=== PATIENT | female | born 1950 | race Caucasian/White ===

== ENCOUNTER → 2022-08-09 | Outpatient (CLI) | payer MEDICARE ==
--- NOTE | 2022-08-10 05:19 | MR ---
EXAMINATION TYPE: MR shoulder RT wo con DATE OF EXAM: 08/09/2022 COMPARISON: None HISTORY: Rt shoulder pain Multiplanar multiecho imaging of the right shoulder performed with no contrast. There is a large shoulder joint effusion. There is narrowing of the glenohumeral joint space. There i s a mild subdeltoid effusion. AC joint is intact. No significant subacromial impingement. There are s mall areas of increased signal in the supraspinatus tendon without a definite full-thickness tear. Th ere is no retraction. There is increased signal in the infraspinatus tendon consistent with full-thic kness tear. There is a 1 cm degenerative cyst in the greater tuberosity of the humerus. No fracture l ine seen. The glenoid ida appear intact. The subscapularis tendon is intact. The biceps tendon is i ntact. IMPRESSION: There is some thickening and increased signal in the supraspinatus tendon consistent with tendinitis. Large shoulder joint effusion that is nonspecific. There is evidence of full-thickness tear and tendinitis involving the infraspinatus tendon.
== END | disposition home or self-care (01) ==
LOC: RADMRIMAIN 06:57
PROVIDERS: ATTEND Physician Assistant
DX: S43.004A Unspecified dislocation of right shoulder joint, initial encounter (principal); M75.111 Incomplete rotator cuff tear or rupture of right shoulder, not specified as traumatic; M75.101 Unspecified rotator cuff tear or rupture of right shoulder, not specified as traumatic; M12.811 Other specific arthropathies, not elsewhere classified, right shoulder; M75.21 Bicipital tendinitis, right shoulder; M25.411 Effusion, right shoulder